=== PATIENT | female | born 2000 | race Caucasian/White ===

== ENCOUNTER 2023-03-19 14:29 | Outpatient (REF) | payer BC, SELFPAY ==
[2023-03-20 03:33] LABS: CT PCR NOT DETECTED (Not Detect.); NG PCR NOT DETECTED (Not Detect.)
[2023-03-20 13:44] LABS: BV Int Neg Control Negative (Negative); BV Int Pos Control Positive (Positive)
== END 2023-03-19 14:30 | disposition home or self-care (01) ==
LOC: HO.LNP 14:29
PROVIDERS: PCP Nurse Practitioner Family; Visit Provider Advanced Practice Midwife
DX: Z01.419 Encounter for gynecological examination (general) (routine) without abnormal findings (principal); N92.6 Irregular menstruation, unspecified; Z20.2 Contact with and (suspected) exposure to infections with a predominantly sexual mode of transmission
CPT/HCPCS: 0353U; 87480; 87510; 87660; 88142

== ENCOUNTER 2023-03-19 14:29 | Outpatient (AMB) | payer BC, SELFPAY ==
[2023-03-19 14:33] VITALS: BMI 23.2
--- NOTE | 2023-03-19 14:33 | MHC.OFFVIS ---
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 She does not really have a primary care provider though she thinks she signed up with 1 recently but has not seen them. She has not having any medical problems whatsoever she tries to eat well and exercise and take care of herself she tries to eat cleanly and avoids sugars and junk and she is in a monogamous relationship and she feels fairly certain that both of them were virgins before their marriage and have only been with each other after some discussion she did except testing for STIs done during the exam but declines blood work as not necessary. She they are currently using condoms and perhaps in 2-3 years they may be open to if they got it would be okay. She went to a pediatric practice either in [place] or [place] and isn't sure she thinks she remembers getting some vaccinations though she does not get vaccinated for COVID or flu. She used to get very very crampy in the 1st few hours of her. But in the last year so they have gotten better it did not seem to correlate with when she became sexually active in her marriage. She has been tracking her cycles and they seem to range in length from 23 days to 40 days or so. She has not particularly aware of signs and symptoms of ovulation or changes in her cycle but she is starting to notice them and see if she can follow what is going on. The appt told her that she got her period yesterday however. [facility] Female Reproductive History Menstrual Age of Menarche: 16 Duration of menses: 6-7 days Date of last menstrual period: 02/17/23 control method: none Total pregnancies: 0 Physical Exam Vital Signs: BMI result Body Mass Index 23.2 Const General: healthy appearing, comfortable, no acute distress, well developed and alert Nutritional Appearance: average body habitus Orientation/consciousness: patient oriented x3 Limitations: no limitations HEENT Head: Yes normocephalic Neck Neck: Yes normal visual inspection Chest Chest palpation & inspection: normal inspection of the chest Breast/axilla inspection: normal inspection of the breasts and normal inspection of the axillae Breast/axilla palpation: normal palpation of the breasts and normal palpation of the axillae Resp Effort & Inspection: normal respiratory effort GI Inspection: Yes normal to inspection, No Abdominal wall edema and No distended Palpation (GI): Soft to palpation and nontender Other: External exam within normal limits vagina pink moist cervix small nulliparous pink smooth midposition uterus is small mobile nontender midposition not enlarged adnexa not enlarged nontender and she has good tone with Kegel General: Yes bladder normal to palpation External Female Exam: normal external appearance and normal appearance of the urethra Speculum Exam - Vagina: normal appearance of the vagina, normal palpation and normal vaginal discharge Speculum Exam - Cervix: normal appearance of the cervix, normal palpation and nontender Bimanual exam- vagina & uterus: normal bimanual exam, normal palpation, uterine size normal, bladder normal to palpation, consistency normal, normal palpation, uterine mobility normal, uterine shape normal, No Cervical tenderness present, non-tender and no cervical motion tenderness Bimanual Exam- Adnexa, other: normal adnexae, no masses, normal and No adnexal tenderness Neuro General: patient oriented x3 Assessment & Plan Assessment & Plan (1) Well woman exam with routine gynecological exam: Code(s): Z01.419 - Encounter for gynecological examination (general) (routine) without abnormal findings (2) Cervical cancer screening: Code(s): Z12.4 - Encounter for screening for malignant neoplasm of cervix (3) Encounter for screening examination for sexually transmitted disease: Code(s): Z11.3 - Encounter for screening for infections with a predominantly sexual mode of transmission (4) Menstrual periods irregular: Comment: Patient tracking them some as short as 23 days some as long as 40+, Education about changes in cycle reviewed. Code(s): N92.6 - Irregular menstruation, unspecified Plan -----Discussed in this visit the following: healthy balanced diet, regular and consistent exercise, getting recommended health screens, doing the best she can for her particular health concerns, kegel exercises, pap smear screening and followup recommendations, mammography screening and SBE, normal changes in cycles in her life stage--- . Discussed normal intervals for cervical cancer screening also recommend that she double check with her parents or her box stacker her own personal vaccination records to see if she got the HPV vaccine and discussed its use fullness as well. Discussed although ways 1 can trying keep on self healthy by trying to eat well and exercise and avoid toxins and unhelpful an unhealthy habits. She works out at least 5 days a week. Discussed signs and symptoms of ovulation for her to begin to consider being aware of so she can increase her awareness of her own cycle and this may help her when she goes to try to get . She says her father gives her advice about vitamins and supplements to take and so she follows that.. Orders: Orders CT NG by PCR Today Z11.3 - Encounter for screening for infections with a predominantly sexual mode of transmission Pap Smear Today Z12.4 - Encounter for screening for malignant neoplasm of cervix Bacterial Vaginosis Panel Today Z11.3 - Encounter for screening for infections with a predominantly sexual mode of transmission Coding Level of Care Code New Pt Prev Care 18-39yr([id number] Diagnoses Well woman exam with routine gynecological exam Z01.419 Cervical cancer screening Z12.4 Encounter for screening examination for sexually transmitted disease Z11.3 Menstrual periods irregular N92.6
== END 2023-03-19 15:33 | disposition home or self-care (01) ==
LOC: HO.HWSM 14:29
PROVIDERS: PCP Nurse Practitioner Family; Visit Provider Advanced Practice Midwife
DX: Z01.419 Encounter for gynecological examination (general) (routine) without abnormal findings (principal); Z12.4 Encounter for screening for malignant neoplasm of cervix; Z11.3 Encounter for screening for infections with a predominantly sexual mode of transmission; N92.6 Irregular menstruation, unspecified
CPT/HCPCS: 99385

== ENCOUNTER 2023-05-16 09:43 | Outpatient (REF) | payer BC, SELFPAY | END 2023-05-16 09:44 | disposition home or self-care (01) | LOC: HO.LNP 09:43 | PROVIDERS: PCP Nurse Practitioner Family; Visit Provider Advanced Practice Midwife | DX: R87.615 Unsatisfactory cytologic smear of cervix (principal) | CPT/HCPCS: 88142 ==

== ENCOUNTER 2023-05-16 09:43 | Outpatient (AMB) | payer BC, SELFPAY ==
[2023-05-16 10:25] VITALS: BP 112/62; BMI 23.2
--- NOTE | 2023-05-16 10:25 | MHC.OFFVIS ---
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 She was not midcycle so it did not seem to concur with the physical findings of that they but nevertheless we will repeat the Pap today she has steadfastly avoided intercourse for the last 3 days and she uses condoms anyway and she is also aware for cycle and she is not midcycle. PFSH Female Reproductive History Menstrual Age of Menarche: 16 Date of last menstrual period: 04/24/23 Physical Exam Vital Signs: Last Vital Signs BP 112/62 05/16/23 10:25 BMI result Body Mass Index 23.2 Results Reviewed Results Reviewed: Name: Nidia Osborne Age/Sex: 22/F Attending: Avril Rebolledo CNM : 2000 Submitted by: Avril Rebolledo CNM Copies to: Kavon Villavicencio CNP MR #: [id number] Status: DEP REF Collected: 03/19/23 Location: [facility] Received: 03/20/23 Interpretation Unsatisfactory. Obscuring mucus. Clinical Information LMP: 02/17/23 Previous PAP test: First pap Material Received ThinPrep-Cervical Copies To Avril Rebolledo CNM [address] [place] [place], [place] [id number] Kavon Villavicencio [facility] [address] [place], [place] [id number] [email or web address] Electronically Signed By: AMARJIT Benitez (ASCP) 04/04/23 1516 The Pap Test is a screening procedure with the inherent possibility of both false negative and false positive results. Results should be interpreted in the context of historic and current clinical findings. Reliability of the Pap Test is enhanced by performing the test on a regular repetitive basis. Patient: Nidia Osborne Age/Sex: 22/F MR#: [id number] Page 1 of 1 Assessment & Plan Assessment & Plan (1) Cervical cancer screening: Comment: First Pap smear done February 2023 came back inadequate due to obscuring mucus the patient was not midcycle. Pap smear is being repeated today 05/16/2023 again not midcycle and no excessive mucus seen. Code(s): Z12.4 - Encounter for screening for malignant neoplasm of cervix Plan Pap smear was repeated today as above. Orders: Orders Pap Smear Today R87.615 - Unsatisfactory cytologic smear of cervix Coding Level of Care Code Est Pt Level 3 (09188) Diagnoses Cervical cancer screening Z12.4
== END 2023-05-16 10:40 | disposition home or self-care (01) ==
LOC: HO.HWSM 09:43
PROVIDERS: PCP Nurse Practitioner Family; Visit Provider Advanced Practice Midwife
DX: Z12.4 Encounter for screening for malignant neoplasm of cervix (principal)
CPT/HCPCS: 99213